=== PATIENT | male | born 1965 | race Caucasian/White ===

== ENCOUNTER → 2024-06-16 | Outpatient (CLI) | payer OTHER ==
[~2024-06-16] MED LIST: BENA1TAB24 PO; HYDR-3490 PO; LAMO100T80 PO; OMEP40CA4 PO; PRAV40TA2 PO
== END ==
LOC: M CARPUL 08:23
PROVIDERS: ATTEND Internal Medicine
DX: I35.0 Nonrheumatic aortic (valve) stenosis (principal); R01.1 Cardiac murmur, unspecified